=== PATIENT | male | born 1970 | race Caucasian/White ===

== ENCOUNTER 2023-01-28 12:34 | Outpatient (CLI) | payer OTHER, SELFPAY | END 2023-01-28 12:35 | disposition home or self-care (01) | PROVIDERS: PCP Family Medicine; Visit Provider Family Medicine | DX: N52.9 Male erectile dysfunction, unspecified (principal); Z13.9 Encounter for screening, unspecified; Z12.5 Encounter for screening for malignant neoplasm of prostate | CPT/HCPCS: 80048; 84153 ==

== ENCOUNTER 2023-08-08 09:57 | Outpatient (CLI) | payer OTHER, SELFPAY | END 2023-08-08 09:58 | disposition home or self-care (01) | LOC: NFLDREF 08-13 07:49 | PROVIDERS: PCP Family Medicine; Referring Provider Family Medicine; Visit Provider Family Medicine | DX: N39.0 Urinary tract infection, site not specified (principal) | CPT/HCPCS: 87086 ==

== ENCOUNTER 2024-07-09 10:05 | Outpatient (CLI) | payer OTHER, SELFPAY | END 2024-07-09 10:06 | disposition home or self-care (01) | PROVIDERS: PCP Family Medicine; Visit Provider Family Medicine | DX: R53.83 Other fatigue (principal); Z13.6 Encounter for screening for cardiovascular disorders; Z12.5 Encounter for screening for malignant neoplasm of prostate; Z13.9 Encounter for screening, unspecified | CPT/HCPCS: 80048; 80061; 85025; G0103 ==

== ENCOUNTER 2024-10-21 08:15 | Outpatient (CLI) | payer OTHER, SELFPAY ==
[2024-10-21 10:37] LABS: Appearance Urine Clear (Clear); Bilirubin Urine Negative (Negative); Blood Urine Negative (Negative); Color Urine Yellow (Yellow); Glucose Urine Negative (Negative); Ketones Urine Negative (Negative); Leukocyte Esterase Urine Negative (Negative); Nitrite Urine Negative (Negative); Protein Urine Trace (Negative); Urobilinogen Urine 0.2 (0.2-1.0); pH Urine 5.5 (5.0-8.5)
[2024-10-21 10:58] LABS: Bacteria Urine Few; RBC Urine 0-2 (0-2); Squamous Epithelial Cell Urine Few (None-Few)
== END 2024-10-21 08:16 | disposition home or self-care (01) ==
LOC: NPINS 08:16
PROVIDERS: PCP Family Medicine; Visit Provider Urology
DX: N40.1 Benign prostatic hyperplasia with lower urinary tract symptoms (principal)
CPT/HCPCS: 81001; 81003; 87086; 87186